=== PATIENT | male | born 1995 | race Caucasian/White ===

== ENCOUNTER 2023-04-02 09:00 | Day surgery (SDC) | payer OTHER ==
[2023-03-31 12:06] VITALS: BMI 36.0
--- NOTE | 2023-04-02 08:38 | P.GSHP ---
History of Present Illness H&P Date: 04/02/23 CHIEF COMPLAINT: GERD and change in bowel habits HISTORY OF PRESENT ILLNESS: The patient is a 27-year-old male who presents with gastroesophageal reflux disease and change in bowel habits. Upper and lower endoscopy were offered for further evaluation and management. PAST MEDICAL HISTORY: Please see list. PAST SURGICAL HISTORY: Please see list. MEDICATIONS: Please see list. ALLERGIES: Please see list. SOCIAL HISTORY: No illicit drug use FAMILY HISTORY: No reports of Crohn disease or ulcerative colitis. REVIEW OF ORGAN SYSTEMS: CONSTITUTIONAL: No reports of fevers or chills. GI: Denies any blood in stools or constipation. PHYSICAL EXAM: VITAL SIGNS: Stable GENERAL: Well-developed pleasant in no acute distress. HEENT: No scleral icterus. Extraocular movements grossly intact. Moist buccal mucosa. NECK: Supple without lymphadenopathy. CHEST: Unlabored respirations. Equal bilateral excursions. CARDIOVASCULAR: Regular rate and rhythm. Distal 2+ pulses. ABDOMEN: Soft, nondistended. MUSCULOSKELETAL: No clubbing, cyanosis, or edema. ASSESSMENT: 1. Gastroesophageal reflux disease 2. Change in bowel habits. PLAN: 1. Recommend proceeding with an upper and lower endoscopy Past Medical History Past Medical History: No Reported History Additional Past Medical History / Comment(s): high blood pressure but doesn;t take any meds History of Any Multi-Drug Resistant Organisms: None Reported Past Surgical History: Appendectomy, Cholecystectomy, Ear Surgery, Orthopedic Surgery, Tonsillectomy Additional Past Surgical History / Comment(s): ankle sx right Past Anesthesia/Blood Transfusion Reactions: No Reported Reaction Additional Past Anesthesia/Blood Transfusion Reaction / Comment(s): no blood transfusion Smoking Status: Never smoker Medications and Allergies Home Medications Medication Instructions Recorded Confirmed Type guaiFENesin [Mucinex] 600 mg PO Q4H 03/31/23 03/31/23 History predniSONE 50 mg PO DAILY 03/31/23 03/31/23 History Allergies Allergy/AdvReac Type Severity Reaction Status Date / Time No Known Allergies Allergy Verified 03/31/23 11:56
[~2023-04-02 09:00] MED LIST: LACTATED RINGERS 1,000 ML IV SCH; LIDOCAINE 1% (10MG/ML) FOR IV START INTRADERMA PRN
[2023-04-02 09:51] VITALS: RESP 16; TEMP 97.9
[2023-04-02] MEDS ORDERED: LIDOCAINE 1% INJ 10MG/ML (20 ML MDV) ONE (10:28)
[2023-04-02] MEDS ORDERED: PROPOFOL 10 MG/ML 20 ML VIAL IV ONE (10:28)
[2023-04-02] MEDS ORDERED: fentaNYL (PF) 50 MCG/ML 2 ML AMP ONE (10:28)
--- NOTE | 2023-04-02 10:59 | P.PCN ---
Date of Procedure: 04/02/23 Description of Procedure: PREOPERATIVE DIAGNOSIS: Gastroesophageal reflux disease. Gastritis Morbid obesity. POSTOPERATIVE DIAGNOSIS: Gastroesophageal reflux disease with erosive esophagitis Morbid obesity. Gastritis with bleeding Acute gastric ulcers OPERATION: Esophagogastroduodenoscopy with biopsies along antrum, esophagus and duodenum SURGEON: Ambar Taylor MD ANESTHESIA: MAC. INDICATIONS: The patient is a 27-year-old male who presents with epigastric abdominal pain and reflux disease. Benefits and risks of the procedure were described. Informed consent was obtained. DESCRIPTION: The patient was brought into the endoscopy suite and laid in the left lateral decubitus position. An Olympus gastroscope was passed along the posterior oropharynx down to the distal esophagus where the squamocolumnar junction was encountered at 37 cm from the incisors. The stomach was entered and bile reflux was found. Additional findings are listed below. Biopsies with cold forceps were obtained of the antrum. The first through third portion of the duodenum was examined. Retroflexion of the scope confirmed Hill grade 1 lower esophageal valve. The squamocolumnar junction demonstrated LA grade B erosive esophagitis. The stomach was desufflated. The patient tolerated the procedure well. FINDINGS: Squamocolumnar junction 37 cm from the incisors. Diaphragmatic hiatus at 37 cm. Hill grade 1 lower esophageal valve. LA grade B erosive esophagitis . Biopsies obtained Biopsies obtained of the duodenum Acute gastric ulcers and gastritis with biopsies obtained. RECOMMENDATIONS: Omeprazole and Carafate for 2 weeks.
--- NOTE | 2023-04-02 11:02 | P.PCN ---
Date of Procedure: 04/02/23 Description of Procedure: PREOPERATIVE DIAGNOSIS: Change in bowel habits Colitis POSTOPERATIVE DIAGNOSIS: Change in bowel habits Colitis OPERATION: Colonoscopy to the cecum, ileocecal valve and appendiceal orifice. Colonoscopy with random cold forceps biopsy SURGEON: Ambar Taylor MD. ANESTHESIA: MAC. INDICATIONS: The patient is a 27-year-old male who presents with colitis and change in bowel habits. Benefits and risks were described and informed consent was obtained. DESCRIPTION OF PROCEDURE: The patient had undergone Sutab prep. The patient had been brought into the operating room and laid in the left lateral decubitus position. After adequate intravenous sedation, the rectum was examined with 2% lidocaine jelly. No external hemorrhoids were encountered. The rectal tone was within normal limits. No lesions were palpated in the rectal vault. An Olympus colonoscope was advanced until the cecum, ileocecal valve and appendiceal orifice were clearly viewed. The prep was good. No scattered diverticulosis was encountered. No colonic polyps were found. Random cold forceps biopsies were obtained for colitis. Retroflexion of the scope demonstrated grade 1 internal hemorrhoids without active bleeding or inflammation. The colon was desufflated. The patient had tolerated the procedure well. Withdrawal time was over 6 minutes. FINDINGS: Aronchick preparation quality scale 2 (1-5) Internal hemorrhoids, grade 1 No external prolapsed hemorrhoids. No arteriovenous malformations. No adenomatous polyps. Random biopsies obtained for microscopic colitis RECOMMENDATIONS: Lower endoscopy as needed Plan - Discharge Summary Discharge Rx Participant: No New Discharge Prescriptions: New Sucralfate [Carafate] 1 gm PO BID #30 tablet Omeprazole [PriLOSEC] 40 mg PO DAILY #14 cap Continue predniSONE 50 mg PO DAILY guaiFENesin [Mucinex] 600 mg PO Q4H Discharge Medication List guaiFENesin [Mucinex] 600 mg PO Q4H 03/31/23 [History] predniSONE 50 mg PO DAILY 03/31/23 [History] Omeprazole [PriLOSEC] 40 mg PO DAILY #14 cap 04/02/23 [Rx] Sucralfate [Carafate] 1 gm PO BID #30 tablet 04/02/23 [Rx] Follow up Appointment(s)/Referral(s): Ambar Taylor MD [STAFF PHYSICIAN] - 04/15/23 3:30 pm Patient Instructions/Handouts: Peptic Ulcer (DC), Gastritis (DC) Activity/Diet/Wound Care/Special Instructions: Colonoscopy as needed Discharge Disposition: HOME SELF-CARE
[2023-04-02 11:30] VITALS: BP 107/69; PULSE 83
== END 2023-04-02 11:38 | disposition home or self-care (01) ==
LOC: ORWHC2ENDO 09:00
PROVIDERS: ATTEND Surgery Plastic and Reconstructive Surgery
DX: K29.50 Unspecified chronic gastritis without bleeding (principal); K21.00 Gastro-esophageal reflux disease with esophagitis, without bleeding; K52.9 Noninfective gastroenteritis and colitis, unspecified; R19.4 Change in bowel habit; K64.0 First degree hemorrhoids; E66.01 Morbid (severe) obesity due to excess calories; K25.3 Acute gastric ulcer without hemorrhage or perforation; Z90.49 Acquired absence of other specified parts of digestive tract; Z79.52 Long term (current) use of systemic steroids; Z79.899 Other long term (current) drug therapy; Z98.890 Other specified postprocedural states; Z68.38 Body mass index [BMI] 38.0-38.9, adult
CPT/HCPCS: 88305; 88342; 45380; 43239; J2001; J3010; J2704